=== PATIENT | male | born 1975 | race African-American/Black ===

== ENCOUNTER 2020-08-10 11:05 | Inpatient (IN) | payer OTHER ==
[~2020-08-10] VITALS: Ht 188 cm; Wt 104.3 kg
[2020-08-10] MEDS ORDERED: ATOR10TA PO (11:18)
[2020-08-10] MEDS ORDERED: FLUT16SP16 NS (11:18)
[2020-08-10 12:16] LABS: BASOPHILS # (AUTO) 0.1 K/uL (0.0-8.0); BASOPHILS % (AUTO) 0.9 % (0.0-2.0); EOSINOPHILS % (AUTO) 0.2 % (0.0-7.0); HEMATOCRIT 39.4 % (36.7-47.1); HEMOGLOBIN 12.9 g/dL (12.5-16.3); LYMPHOCYTES # (AUTO) 1.3 K/uL (20.0-40.0); LYMPHOCYTES % (AUTO) 14.9 % (20.5-51.5); MEAN CORPUSCULAR HEMOGLOBIN 28.9 uug (23.8-33.4); MEAN CORPUSCULAR HGB CONC 33 g/dL (32.5-36.3); MEAN CORPUSCULAR VOLUME 88.1 fL (73.0-96.2); MONOCYTES # (AUTO) 0.7 K/uL (2.0-10.0); MONOCYTES % (AUTO) 8.4 % (0.0-11.0); NEUTROPHILS # (AUTO) 6.4 K/uL (1.8-8.9); NEUTROPHILS % (AUTO) 75.6 % (38.5-71.5); PLATELET COUNT (AUTO) 304 K/uL (152-348); RED BLOOD CELL COUNT(AUTO) 4.48 MIL/uL (4.06-5.63); WHITE BLOOD COUNT (AUTO) 8.4 K/uL (3.6-10.2)
[2020-08-10 13:06] LABS: CREATININE 1.2 mg/dL (0.6-1.3); POTASSIUM 4.2 mmol/L (3.5-5.1)
[2020-08-10 13:18] LABS: BILIRUBIN,TOTAL 0.4 mg/dL (0.2-1.0); TOTAL PROTEIN, SERUM 7.7 g/dL (6.4-8.2)
--- NOTE | 2020-08-10 14:25 | NUR ---
Pt resting in bed, no complaints, no distress noted.
[2020-08-10] MEDS ORDERED: IOHEXOL 350 100 ML INFUS..BTL ONE (14:41)
[2020-08-10] MEDS ORDERED: SWABABLE VALVE TRANSFER SET EA MC ONE (14:42)
[2020-08-10] MEDS ORDERED: IV NORMAL SALINE 250 ML IV ONE (14:42)
[2020-08-10] MEDS ORDERED: ENOXAPARIN SODIUM 80 MG/0.8 ML DISP.SYRIN SQ ONE ×2 (15:45→15:46)
[2020-08-10] MEDS ORDERED: AZITHROMYCIN IV 500 MG in IV DEXTROSE 5% 250 ML IV ONE (15:45)
[2020-08-10] MEDS ORDERED: AZITHROMYCIN 500MG/ D5W 250ML IVPB **ER PYXIS ONLY IV ONE (15:56)
--- NOTE | 2020-08-10 16:35 | NUR ---
Turner Jc RAILROAD [employer]ARD WORKER at the bedside for admit.
--- NOTE | 2020-08-10 17:28 | NUR ---
Pt resting in bed, no complaints, no distress noted. Gave pt dinner tray.
--- NOTE | 2020-08-10 17:45 | NUR ---
Called for bed.
--- NOTE | 2020-08-10 18:20 | NUR ---
Called report to TREMAINE Almaraz. She also stated pt will not be going to room 314, they WCB w/new room number.
[2020-08-10] MEDS ORDERED: ENOXAPARIN SODIUM 40 MG/0.4 ML DISP.SYRIN SQ ONE ×2 (19:44→19:45)
--- NOTE | 2020-08-10 20:09 | NUR ---
Report given to uLcrecia PENALOZA Tele.
[2020-08-10] MEDS ORDERED: KETOROLAC TROMETHAMINE 30 MG INJ ONE (20:25)
[2020-08-10] MEDS ORDERED: KETOROLAC TROMETHAMINE 30 MG INJ IVP ONE (20:30)
[2020-08-10 22:00] VITALS: BP 135/54
[2020-08-10] MEDS ORDERED: MAGNESIUM HYDROXIDE 30 ML LIQUID UDC PO PRN (22:00)
[2020-08-10] MEDS ORDERED: ZOLPIDEM 5 MG TABLET PO PRN (22:00)
[2020-08-10] MEDS ORDERED: ACETAMINOPHEN 325 MG TABLET PO PRN (22:00)
[2020-08-10] MEDS ORDERED: ONDANSETRON 4 MG/2 ML VIAL IV PRN (22:00)
[2020-08-10] MEDS ORDERED: Z GUARD REMEDY PASTE 57 GM TUBE TOP PRN (22:00)
--- NOTE | 2020-08-10 22:00 | NUR ---
Received from ER via 3rd floor. No RAMON nurse; thus, residing within ICU unit / hospital convenience. Stated left calf pain this last week; then, right shoulder pain mariana. with deep breaths these last 3 days. Takes Motrin 600 mg / above.
[2020-08-10] MEDS ORDERED: CEFTRIAXONE /D5W 50ML IVPB **ER PYXIS IV ONE (22:19)
[2020-08-10] MEDS: CEFTRIAXONE 1 G in IV DEXTROSE 5% 50 ML IV SCH (22:28)
[2020-08-10] MEDS ORDERED: ENOXAPARIN SODIUM 100 MG/ML DISP.SYRIN SQ ONE (22:30)
--- NOTE | 2020-08-10 22:48 | NUR ---
100mg of Lovenox not given as per Turner Jc this order was supposed to be starting tomorrow not tonight.
[2020-08-10] MEDS: HYDROCODONE/APAP 5-325MG TABLET PO PRN (22:54)
[2020-08-10 23:00] VITALS: BP 139/71
[2020-08-11] VITALS (9 sets, daily range): BP systolic 96–136; BP diastolic 53–75
[2020-08-11] MEDS ORDERED: IV NORMAL SALINE 250 ML IV PRN (01:00)
--- NOTE | 2020-08-11 02:00 | NUR ---
Remains awake, refused Ambien.
[2020-08-11 05:08] LABS: BASOPHILS # (AUTO) 0.1 K/uL (0.0-8.0); BASOPHILS % (AUTO) 0.8 % (0.0-2.0); EOSINOPHILS % (AUTO) 0.3 % (0.0-7.0); HEMATOCRIT 39.7 % (36.7-47.1); LYMPHOCYTES # (AUTO) 2.1 K/uL (20.0-40.0); LYMPHOCYTES % (AUTO) 28.3 % (20.5-51.5); MEAN CORPUSCULAR HEMOGLOBIN 28.9 uug (23.8-33.4); MEAN CORPUSCULAR HGB CONC 33 g/dL (32.5-36.3); MEAN CORPUSCULAR VOLUME 88.2 fL (73.0-96.2); MONOCYTES # (AUTO) 0.7 K/uL (2.0-10.0); MONOCYTES % (AUTO) 10.3 % (0.0-11.0); NEUTROPHILS # (AUTO) 4.4 K/uL (1.8-8.9); NEUTROPHILS % (AUTO) 60.3 % (38.5-71.5); PLATELET COUNT (AUTO) 293 K/uL (152-348); WHITE BLOOD COUNT (AUTO) 7.3 K/uL (3.6-10.2)
[2020-08-11 05:27] LABS: CREATININE 1.2 mg/dL (0.6-1.3); MAGNESIUM 2.1 mg/dL (1.8-2.4); POTASSIUM 4.3 mmol/L (3.5-5.1)
[2020-08-11] MEDS: PANTOPRAZOLE SODIUM 40 MG TABLET.DR PO SCH (05:52)
[2020-08-11] MEDS: HYDROCODONE/APAP 5-325MG TABLET PO PRN ×3 (05:53→22:00)
[2020-08-11] MEDS: FLUTICASONE PROP NASAL SPRAY 16 GM BOTTLE NS SCH (08:09)
[2020-08-11] MEDS ORDERED: ATORVASTATIN 10 MG TABLET PO SCH (09:00)
--- NOTE | 2020-08-11 09:25 | NUR ---
Attending Viviana Jc in the room to see and examine pt. report given. Orders to continue with care plan received.
[2020-08-11] MEDS: ENOXAPARIN SODIUM 100 MG/ML DISP.SYRIN SQ SCH ×2 (11:55→20:59)
--- NOTE | 2020-08-11 14:37 | NUR ---
Telephone report given to Hetal Miranda. pt. will taken up to room 302 via wheel-chair. Pt. [id number]. vitals stable, iv patent, afebrile. No discomfort noted, or reported.
--- NOTE | 2020-08-11 15:15 | NUR ---
RECEIVED PATIENT TRANSFERED IN FROM THE CCU BY W/CHAIR TO ROOM 302 ASSISTED INTO BED FIXED AND MADE COMFORTABLE PATIENT IS ALERT AND ORIENTED X4 DENIES PAIN OR DISCOMFORTS HE IS ON ROOM AIR WITH NO S/S OF SHORTNESS OF BREATH AT THIS TIME.NO COUGHING NOTED BUT PATIENT ENCOURAGED TO DEEP BREATH HAS 2 HEP LOCKS ON HIS LEFT ANTECUBITAL AND LEFT HAND PATENT WITH NO S/S OF INFILTERATION AT THIS TIME ORIENTED TO ROOM AND HOSPITAL PROTOCOL CALL LIGHTS AND PERSONAL BELONGINGS ARE WITHIN EASY REACH WILL CONTINUE TO OBSERVE AND PROVIDE COMFORT
--- NOTE | 2020-08-11 15:59 | NUR ---
C/O PAIN ON THE LEFT SIDE OF HIS UPPER BACK MEDICATED WITH NORCO ORDERED MADE COMFORTABLE WILL OBSERVE.
[2020-08-11] MEDS ORDERED: AZITHROMYCIN IV 500 MG in IV DEXTROSE 5% 250 ML IV SCH (16:00)
--- NOTE | 2020-08-11 18:43 | NUR ---
PATIENT IS RESTING WITH HIS DAUGHTER AT THE BEDSIDE WITH NO ADVERSE OR ALLERGIC REACTIONS AT THIS TIME WILL CONTINUE TO OBSERVE.
--- NOTE | 2020-08-11 19:35 | NUR ---
PATIENT ALERT ORIENTED, NO SOB NO CHEST PAIN, TELE MONITOR SINUS RHYTHM, PATIENT IN BED RESTING WITH A FRIEND VISITOR. CONT TO MONITOR.
[2020-08-11] MEDS: CEFTRIAXONE 1 G in IV DEXTROSE 5% 50 ML IV SCH (20:45)
[2020-08-12] VITALS: BP 101/52
[2020-08-12 04:00] VITALS: BP 100/58
--- NOTE | 2020-08-12 04:19 | NUR ---
PATIENT ASLEEP BUT AROUSABLE, NO SOB NO CHEST PAIN. PATIENT COMPLAIN BACK PAIN DUE TO COUGHING, MEDICATED ORDERED, CONT TO MONITOR.
[2020-08-12] MEDS: PANTOPRAZOLE SODIUM 40 MG TABLET.DR PO SCH (06:20)
[2020-08-12 06:26] LABS: BASOPHILS # (AUTO) 0.1 K/uL (0.0-8.0); BASOPHILS % (AUTO) 0.8 % (0.0-2.0); EOSINOPHILS % (AUTO) 0.1 % (0.0-7.0); HEMATOCRIT 39.9 % (36.7-47.1); LYMPHOCYTES % (AUTO) 32.4 % (20.5-51.5); MEAN CORPUSCULAR HEMOGLOBIN 29.1 uug (23.8-33.4); MEAN CORPUSCULAR HGB CONC 33 g/dL (32.5-36.3); MEAN CORPUSCULAR VOLUME 89.5 fL (73.0-96.2); MONOCYTES # (AUTO) 0.6 K/uL (2.0-10.0); MONOCYTES % (AUTO) 10.3 % (0.0-11.0); NEUTROPHILS # (AUTO) 3.5 K/uL (1.8-8.9); NEUTROPHILS % (AUTO) 56.4 % (38.5-71.5); PLATELET COUNT (AUTO) 284 K/uL (152-348); RED BLOOD CELL COUNT(AUTO) 4.46 MIL/uL (4.06-5.63); WHITE BLOOD COUNT (AUTO) 6.2 K/uL (3.6-10.2)
[2020-08-12 06:45] LABS: CREATININE 1.2 mg/dL (0.6-1.3); MAGNESIUM 2.3 mg/dL (1.8-2.4); POTASSIUM 4.1 mmol/L (3.5-5.1)
[2020-08-12] MEDS: FLUTICASONE PROP NASAL SPRAY 16 GM BOTTLE NS SCH (08:49)
[2020-08-12] MEDS: ENOXAPARIN SODIUM 100 MG/ML DISP.SYRIN SQ SCH (09:17)
[2020-08-12] MEDS ORDERED: LEVO750T46 PO (10:42)
[2020-08-12] MEDS ORDERED: APIX5TAB PO (10:42)
[2020-08-12] MEDS ORDERED: APIX5TAB4 PO (10:42)
[2020-08-12] MEDS ORDERED: ENOX40DI SQ (10:42)
--- NOTE | 2020-08-12 11:00 | NUR ---
PATIENT SEEN BY ELENA MONTES WITH ORDER TO DISCHARGE PATIENT HOME TODAY AND WILL CONTINUE ON LOVENOX ORDERED AND WILL THEN TRANSITION TO ELIQUIS AND LEVAQUIN ORDERED PATIENT AWARE AWAITING FOR ECHO ORDERED
[2020-08-12 11:30] VITALS: BP 111/61
--- NOTE | 2020-08-12 12:21 | NUR ---
CALLED AND SPOKE WITH BRYAN THE TELEPHONE ORDER CLERK ROOM SERVICE RE ECHO ORDER ON THIS PATIENT STATED AWARE WILL BE HERE SOON POSSIBLE TO DO THE ECHO ORDERED HE IS AWARE THAT PATIENT WILL BE DISCHARGED TODAY.
--- NOTE | 2020-08-12 14:00 | NUR ---
COMPUTER REPAIR TECHNICIAN HERE AND ECHO COMPLETED ORDERED 65 PERCENT EF PATIENT STATED THAT HIS DAUGHTER IS AWARE AND WILL PICK HIM UP SOON.
--- NOTE | 2020-08-12 15:15 | NUR ---
PATIENTS DAUGHTER MIRELLA HERE AND PATIENT DISCHARGED TO THE CARE OF HIS DAUGHTER IN SATISFACTORY CONDITION WITH DISCHARGE INSTRUCTIONS AND PRESCRIPTIONS AND HOME HEALTH INFO AND PATIENT WAS INSTRUCTED ON THE ORDERS FOR HIS LOVENOX AND ELIQUIS AND HE EXPRESSED UNDERSTANDING
[2020-08-12] MEDS ORDERED: CEFTRIAXONE 2 G in IV DEXTROSE 5% 100 ML IV SCH (21:00)
[2020-08-12] MEDS ORDERED: ATORVASTATIN 10 MG TABLET PO SCH (21:00)
== END 2020-08-12 15:15 | disposition home or self-care (01) | DRG 175 ==
LOC: ER 11:05 → TELE3 21:02 → CCU 21:50 → TELE3 08-11 15:19
PROVIDERS: ADMIT Nurse Practitioner Family; ATTEND Hospitalist
DX: I26.99 Other pulmonary embolism without acute cor pulmonale (principal); J12.9 Viral pneumonia, unspecified; D68.69 Other thrombophilia; E78.5 Hyperlipidemia, unspecified; E66.9 Obesity, unspecified; Z68.29 Body mass index [BMI] 29.0-29.9, adult; Z86.16 Personal history of COVID-19; Z20.822 Contact with and (suspected) exposure to COVID-19; Z87.01 Personal history of pneumonia (recurrent)
CPT/HCPCS: 36415; 70030-TC; 71045; 71275; 83605; 83615; 83735; 85025; 86140; 87040; 93005; 93307; G0378; J0456; J0696; J1650; J1885; J3535; J7050; J7060; Q9967; U0003